=== PATIENT | female | born 2000 | race Caucasian/White ===

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

== ENCOUNTER 2019-07-31 12:58 | Emergency (ER) | payer OTHER ==
[~2019-07-31] VITALS: Ht 162.6 cm; Wt 57.6 kg
[2019-07-31 13:07] VITALS: Ht 162.6 cm; Wt 57.6 kg
[2019-07-31 16:16] VITALS: BP 127/80
== END 2019-07-31 16:16 | disposition home or self-care (01) ==
LOC: ED 12:58
DX: N63.10 Unspecified lump in the right breast, unspecified quadrant (principal)
CPT/HCPCS: 76641; Q0092

== ENCOUNTER 2019-09-21 19:05 | Emergency (ER) | payer OTHER ==
[~2019-09-21] VITALS: Ht 162.6 cm; Wt 56.7 kg
[2019-09-21 19:11] VITALS: Ht 162.6 cm; Wt 56.7 kg
[2019-09-21 20:10] VITALS: BP 130/85
== END 2019-09-21 20:10 | disposition home or self-care (01) ==
LOC: ED 19:05
DX: N63.10 Unspecified lump in the right breast, unspecified quadrant (principal)